=== PATIENT | male | born 1965 | race African-American/Black ===

== ENCOUNTER 2016-10-15 19:47 | Emergency (ER) | payer OTHER ==
[2016-10-15 19:54] VITALS: BP 149/76; PULSE 62; TEMP 99; BMI 26.2
--- NOTE | 2016-10-15 20:08 | PDOC ---
History of Present Illness - General Chief Complaint: Pain Stated Complaint: STOMACH PAIN Time Seen by Provider: 10/15/16 20:04 - History of Present Illness Initial Comments: 10/15/16 20:19 51 yo M with no significant pmh who presents with nausea. Pt. reports nausea and vomiting this AM x 3 following binge drinking episode of [place]. Emesis non biliary with absent blood in vomitus. Endorses mild dull, diffuse abdominal pain, that is improving. No alleviating or aggravating factors identified. Endorses decreased PO intake d/t GI upset. Denies fevers/chills, SOB , chest pain, blood in stool, diarrhea/constipation, lightheadedness. No h/o abdominal procedures. Denies illict drug use. Request work note. Past History - Past Medical History Allergies/Adverse Reactions: Allergies Allergy/AdvReac Type Severity Reaction Status Date / Time No Known Allergies Allergy Verified 10/15/16 19:54 Home Medications: Ambulatory Orders NK [No Known Home Medication] 10/15/16 - Immunization History Immunization Up to Date: Yes - Psycho/Social/Smoking Cessation Hx Anxiety: No Suicidal Ideation: No Smoking Status: No Smoking History: Never smoked Have you smoked in the past 12 months: No Number of Cigarettes Smoked Daily: 0 Information on smoking cessation initiated: No Hx Alcohol Use: Yes Drug/Substance Use Hx: No Substance Use Type: None Review of Systems - Review of Systems Comments:: 10/15/16 20:09 GENERAL/CONSTITUTIONAL: No fever or chills. No weakness. HEAD, EYES, EARS, NOSE AND THROAT: No change in vision. No ear pain or discharge. No sore throat.- CARDIOVASCULAR: No chest pain or shortness of breath RESPIRATORY: No cough, wheezing, or hemoptysis. GASTROINTESTINAL: + nausea,and vomiting and abdominal pain. No diarrhea or constipation. GENITOURINARY: No dysuria, frequency, or change in urination. MUSCULOSKELETAL: No joint or muscle swelling or pain. No neck or back pain. SKIN: No rash NEUROLOGIC: No headache, vertigo, loss of consciousness, or change in strength/ sensation. ENDOCRINE: No increased thirst. No abnormal weight change HEMATOLOGIC/LYMPHATIC: No anemia, easy bleeding, or history of blood clots. ALLERGIC/IMMUNOLOGIC: No hives or skin allergy. *Physical Exam - Vital Signs Last Vital Signs Temp Pulse Resp BP Pulse Ox 99.0 F 62 149/76 100 10/15/16 19:51 10/15/16 19:51 10/15/16 19:51 10/15/16 19:51 - Physical Exam Comments: 10/15/16 20:09 GENERAL: Awake, alert, and fully oriented, in no acute distress HEAD: No signs of trauma, normocephalic, atraumatic EYES: PERRLA, EOMI, sclera anicteric, conjunctiva clear ENT: Auricles normal inspection, hearing grossly normal, nares patent, oropharynx clear without exudates. Moist mucosa NECK: Normal ROM, supple, no lymphadenopathy, JVD, or masses LUNGS: No distress, speaks full sentences, clear to auscultation bilaterally HEART: Regular rate and rhythm, normal S1 and S2, no murmurs, rubs or gallops, peripheral pulses normal and equal bilaterally. ABDOMEN: Soft, nontender, normoactive bowel sounds. No guarding, no rebound. No masses EXTREMITIES : Normal inspection, Normal range of motion, no edema. No clubbing or cyanosis. SKIN: Warm, Dry, normal turgor, no rashes or lesions noted. ED Treatment Course - LABORATORY CBC & Chemistry Diagram: 10/15/16 20:45 10/15/16 20:45 Medical Decision Making - Medical Decision Making 10/15/16 20:24 51 yo M with no significant pmh who presents with nausea. Pt. reports non biliary nausea and vomiting this AM x 3 following recent alcohol intake. Endorses mild dull, diffuse abdominal pain, that is improving. No associated symptoms. Vitals unremarkable No h/o abdominal procedures. Denies illicit drug use. Request work note. S/s most likely d/t GI upset following binge drinking episode. 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 ED Course: NS 1 L Zofran CBC/CMP 10/15/16 21:13 CBC unremarkable CMP: Unremarkable *DC/Admit/Observation/Transfer Diagnosis at time of Disposition: Nausea and vomiting Qualifiers: Vomiting Intractability: non-intractable - Discharge Dispostion Disposition: HOME Condition at time of disposition: Improved Admit: No - Patient Instructions Additional Instructions: Please return to Ed if you experience blood in stool or vomit, worsening abdominal pain, or worsening symptoms - Post Discharge Activity Work/School Note: Back to Work
[2016-10-15] MEDS ORDERED: SODIUM CHLORIDE 1,000 ML IV STA (20:18)
[2016-10-15] MEDS ORDERED: ONDANSETRON 4 MG/2 ML VIAL IVPB ONE (20:18)
--- NOTE | 2016-10-15 20:22 | PDOC ---
Attending Attestation - Resident Resident Name: Danny Garcia - ED Attending Attestation I have performed the following: I have examined & evaluated the patient, The case was reviewed & discussed with the resident, I agree w/resident's findings & plan, Exceptions are as noted - HPI HPI: 10/15/16 22:12 51 yo male admits to drinking alcohol heavily the day before and presents abd discomfort - Physicial Exam PE: 10/15/16 22:13 Physical exam distress Well-nourished well-developed 51-year-old male in no acute distress. HEENT within normal limits Lungs clear to auscultation bilaterally Regular rate and rhythm S1, S2, no rubs and no gallops. Abdomen, no guarding and no rebound. Extremities no deformity Neurology alert and oriented 3, ambulatory - Medical Decision Making 10/15/16 22:15 -he received Zofran, IV fluids and felt much better, was discharged home
[2016-10-15] MEDS ORDERED: ONDANSETRON 4 MG/2 ML VIAL ONE (20:33)
[2016-10-15 20:53] LABS: BASOPHIL 0.6 % (0-2.0); EOSINOPHIL 0.4 % (0-4.5); MCH 28.7 pg (25.7-33.7); MCHC 32.9 g/dl (32.0-35.9); MEAN CELL VOLUME 87.2 fl (80-96); MEAN PLT VOLUME 7.7 fl (7.5-11.1); NEUTROPHILS 54.5 % (42.8-82.8); PLATELET COUNT 230 K/MM3 (134-434); RDW 14.5 % (11.9-15.9); WHITE BLOOD COUNT 9.6 K/mm3 (4.0-10.0)
[2016-10-15 21:23] LABS: ALBUMIN 3.9 g/dl (3.4-5.0); ALK PHOS 66 U/L (45-117); ANION GAP 8 (8-16); BILIRUBIN,TOTAL 0.8 mg/dL (0.2-1.0); CALCIUM 8.9 mg/dL (8.5-10.1); CO2 29 mmol/L (21-32); CREATININE 0.8 mg/dL (0.7-1.3); GLUCOSE,RANDOM 92 mg/dL (74-106); SGPT/ALT 41 U/L (12-78); TOT PROT 7.6 g/dl (6.4-8.2)
[2016-10-15 21:24] LABS: SGOT/AST 25 U/L (15-37)
== END 2016-10-15 22:42 | disposition home or self-care (01) ==
LOC: JER 19:47
PROC: 3E033GC Introduction of Other Therapeutic Substance into Peripheral Vein, Percutaneous Approach (ICD-10-PCS; principal; 2016-10-15)
DX: R11.2 Nausea with vomiting, unspecified (principal)
CPT/HCPCS: 36415; 80053; 83690; 85025; 99283-25

== ENCOUNTER 2017-06-10 23:01 | Emergency (ER) | payer OTHER ==
[2017-06-10 23:25] VITALS: BP 122/65; PULSE 86; TEMP 99.8; BMI 25.0
--- NOTE | 2017-06-11 00:56 | PDOC ---
History of Present Illness <Katya Orlando Leni - Last Filed: 06/11/17 00:55> - General History Source: Patient Exam Limitations: No Limitations - History of Present Illness Initial Comments: 06/11/17 01:04 The patient is a 52 year old male who denies any significant past medical history who presents to the ED complaining of chills, malaise, and generalized weakness that began this morning while at work. He also reports associated nausea. No chest pain or SOB. No abdominal pain, vomiting, or diarrhea. No urinary complaints. Denies sick contacts or recent travel. <Darleen Nobles - Last Filed: 06/11/17 01:03> <Rosamaria Parish - Last Filed: 06/11/17 06:27> - General Chief Complaint: Cold Symptoms Stated Complaint: WEAKNESS Time Seen by Provider: 06/11/17 00:55 Past History - Past Medical History COPD: No Other medical history: Pt denies - Immunization History Immunization Up to Date: Yes - Suicide/Smoking/Psychosocial Hx Smoking Status: No Smoking History: Never smoked Have you smoked in the past 12 months: No Number of Cigarettes Smoked Daily: 0 Information on smoking cessation initiated: No Hx Alcohol Use: No Drug/Substance Use Hx: No Substance Use Type: None <Augusto Orlandoleeroy Farrar - Last Filed: 06/11/17 00:55> <Darlene Nobles - Last Filed: 06/11/17 01:03> <Rosamaria Parish - Last Filed: 06/11/17 06:27> - Past Medical History Allergies/Adverse Reactions: Allergies Allergy/AdvReac Type Severity Reaction Status Date / Time No Known Allergies Allergy Verified 06/10/17 23:21 Home Medications: Ambulatory Orders NK [No Known Home Medication] 10/15/16 Review of Systems - Review of Systems Able to Perform ROS?: Yes Comments:: 06/11/17 01:05 GENERAL/CONSTITUTIONAL: +Chills +weakness +malaise HEAD, EYES, EARS, NOSE AND THROAT: No change in vision. No ear pain or discharge. No sore throat. CARDIOVASCULAR: No chest pain or shortness of breath. RESPIRATORY: No cough, wheezing, or hemoptysis. GASTROINTESTINAL: +Nausea. No abdominal pain, vomiting, diarrhea or constipation. GENITOURINARY: No dysuria, frequency, or change in urination. MUSCULOSKELETAL: No joint or muscle swelling or pain. No neck or back pain. SKIN: No rash NEUROLOGIC: No headache, vertigo, loss of consciousness, or change in strength/ sensation. ENDOCRINE: No increased thirst. No abnormal weight change. HEMATOLOGIC/LYMPHATIC: No anemia, easy bleeding, or history of blood clots. ALLERGIC/IMMUNOLOGIC: No hives or skin allergy. <Darlene Nobles - Last Filed: 06/11/17 01:03> *Physical Exam - Vital Signs Last Vital Signs Temp Pulse Resp BP Pulse Ox 99.8 F H 86 18 122/65 98 06/10/17 23:22 06/10/17 23:22 06/10/17 23:22 06/10/17 23:22 06/10/17 23:22 <Katya Orlando - Last Filed: 06/11/17 00:55> - Vital Signs Last Vital Signs Temp Pulse Resp BP Pulse Ox 99.8 F H 86 18 122/65 98 06/10/17 23:22 06/10/17 23:22 06/10/17 23:22 06/10/17 23:22 06/10/17 23:22 - Physical Exam Comments: 06/11/17 01:06 GENERAL: Awake, alert, and fully oriented, in no acute distress HEAD: No signs of trauma EYES: PERRLA, EOMI, sclera anicteric, conjunctiva clear ENT: Auricles normal inspection, hearing grossly normal, nares patent, oropharynx clear without exudates. Moist mucosa NECK: Normal ROM, supple, no lymphadenopathy, JVD, or masses LUNGS: Breath sounds equal, clear to auscultation bilaterally. No wheezes, and no crackles HEART: Regular rate and rhythm, normal S1 and S2, no murmurs, rubs or gallops ABDOMEN: Soft, nontender, normoactive bowel sounds. No guarding, no rebound. No masses EXTREMITIES: Normal range of motion, no edema. No clubbing or cyanosis. No cords, erythema, or tenderness NEUROLOGICAL: Cranial nerves II through XII grossly intact. Normal speech, normal gait SKIN: Warm, Dry, normal turgor, no rashes or lesions noted. <Darlene Nobles - Last Filed: 06/11/17 01:03> - Vital Signs Last Vital Signs Temp Pulse Resp BP Pulse Ox 99.8 F H 86 18 122/65 98 06/10/17 23:22 06/10/17 23:22 06/10/17 23:22 06/10/17 23:22 06/10/17 23:22 <Rosamaria Parish - Last Filed: 06/11/17 06:27> ED Treatment Course - LABORATORY CBC & Chemistry Diagram: 06/11/17 01:30 06/11/17 01:30 - ADDITIONAL ORDERS Additional order review: Laboratory Results 06/11/17 06/11/17 01:30 01:30 Sodium 142 Potassium 3.4 L Chloride 104 Carbon Dioxide 28 Anion Gap 10 BUN 19 H D Creatinine 0.9 Creat Clearance w eGFR > 60 Random Glucose 94 Calcium 9.0 Total Bilirubin 0.9 AST 19 D ALT 26 D Alkaline Phosphatase 75 Total Protein 7.5 Albumin 3.9 Lipase 142 06/11/17 01:30 RBC 4.27 MCV 86.6 MCHC 33.5 RDW 13.4 MPV 7.4 L Neutrophils % 75.9 D Lymphocytes % 16.9 D Monocytes % 6.0 Eosinophils % 0.8 D Basophils % 0.4 - Medications Given in the ED: ED Medications Discontinued Medications Generic Name Dose Route Start Last Admin Trade Name Freq PRN Reason Stop Dose Admin Acetaminophen 650 mg 06/11/17 01:04 06/11/17 01:37 Tylenol - PO 06/11/17 01:05 650 mg ONCE ONE Administration <Rosamaria Parish - Last Filed: 06/11/17 06:27> Medical Decision Making - Medical Decision Making 06/11/17 06:27 I received pt on signout. Labs and CXR normal. Pt discharged home. COmplaint o f"malaise" Pt given days off from work. <Rosamaria Parish - Last Filed: 06/11/17 06:27> *DC/Admit/Observation/Transfer <Katya Orlando - Last Filed: 06/11/17 00:55> - Attestations Scribe Attestion: 06/11/17 01:06 Documentation prepared by Darlene Nobles, acting as medical record coder for Katya Orlando MD. <Darlene Nobles - Last Filed: 06/11/17 01:03> - Discharge Dispostion Admit: No <Rosamaria Parish - Last Filed: 06/11/17 06:27> Diagnosis at time of Disposition: Malaise - Discharge Dispostion Disposition: HOME Condition at time of disposition: Stable - Patient Instructions Printed Discharge Instructions: How to Avoid a Cold or Flu - Post Discharge Activity Forms/Work/School Notes: Back to Work
[2017-06-11] MEDS ORDERED: ACETAMINOPHEN 325 MG TABLET (FP) PO ONE (01:04)
[2017-06-11] MEDS ORDERED: ACETAMINOPHEN 325 MG TABLET (FP) ONE (01:18)
[2017-06-11 01:53] LABS: BASO % 0.4 % (0-2.0); EOS % 0.8 % (0-4.5); HEMATOCRIT 36.9 % (35.4-49); HEMOGLOBIN 12.4 GM/dL (11.7-16.9); LYMPH % 16.9 % (8-40); MCHC 33.5 g/dl (32.0-35.9); MEAN CELL VOLUME 86.6 fl (80-96); MEAN PLT VOLUME 7.4 fl (7.5-11.1); NEUT % 75.9 % (42.8-82.8); PLATELET COUNT 204 K/MM3 (134-434); RBC 4.27 M/mm3 (4.00-5.60); RDW 13.4 % (11.9-15.9); WHITE BLOOD COUNT 7.4 K/mm3 (4.0-10.0)
[2017-06-11 02:18] LABS: ALBUMIN 3.9 g/dl (3.4-5.0); ANION GAP 10 (8-16); BILIRUBIN,TOTAL 0.9 mg/dL (0.2-1.0); BLOOD UREA NITROGEN 19 mg/dL (7-18); CHLORIDE 104 mmol/L (98-107); CO2 28 mmol/L (21-32); CREATININE 0.9 mg/dL (0.7-1.3); GLUCOSE,RANDOM 94 mg/dL (74-106); POTASSIUM 3.4 mmol/L (3.5-5.1); SGOT/AST 19 U/L (15-37); SGPT/ALT 26 U/L (12-78); SODIUM 142 mmol/L (136-145); TOT PROT 7.5 g/dl (6.4-8.2)
[2017-06-11 02:19] LABS: ALK PHOS 75 U/L (45-117)
== END 2017-06-11 02:36 | disposition home or self-care (01) ==
LOC: JER 23:01
DX: R53.81 Other malaise (principal)
CPT/HCPCS: 36415; 71046-TC-FY; 80053; 83690; 85025; 87804; 99281-25; 99282-25

== ENCOUNTER 2017-08-12 19:15 | Emergency (ER) | payer OTHER ==
[2017-08-12 19:30] VITALS: BP 127/107; PULSE 88; TEMP 102.8; BMI 22.7
[2017-08-12] MEDS ORDERED: SODIUM CHLORIDE 0.9% 1000 ML INFUS.BAG IV STA (20:03)
--- NOTE | 2017-08-12 20:04 | PDOC ---
History of Present Illness - General Chief Complaint: SIRS, Suspected/Possible Stated Complaint: FATIGUE Time Seen by Provider: 08/12/17 19:50 History Source: Patient, Old Records Exam Limitations: No Limitations - History of Present Illness Initial Comments: 08/12/17 20:08 52-year-old male who denies significant past medical history presents emergency departments with feelings of chills, generalized weakness, nausea which started today at approximately 3:00. Patient states she did have similar episode 1 day prior but symptoms resolved spontaneously. Denies any chest pain, shortness of breath, abdominal pain, vomiting or diarrhea. No urinary complaints. Patient has not had any sick contacts or recent travel. Past History - Past Medical History Allergies/Adverse Reactions: Allergies Allergy/AdvReac Type Severity Reaction Status Date / Time No Known Allergies Allergy Verified 06/10/17 23:21 Home Medications: Ambulatory Orders NK [No Known Home Medication] 10/15/16 COPD: No DVT: No - Immunization History Immunization Up to Date: Yes - Suicide/Smoking/Psychosocial Hx Smoking Status: No Smoking History: Never smoked Have you smoked in the past 12 months: No Number of Cigarettes Smoked Daily: 0 Information on smoking cessation initiated: No Hx Alcohol Use: Yes (socially) Drug/Substance Use Hx: No Substance Use Type: None Review of Systems - Review of Systems Able to Perform ROS?: Yes Is the patient limited Polish proficient: No Constitutional: Yes: See HPI HEENTM: Yes: See HPI Respiratory: Yes: See HPI Cardiac (ROS): No: Symptoms Reported ABD/GI: Yes: See HPI : No: Symptoms Reported Musculoskeletal: No: Symptoms Reported Integumentary: No: Symptoms Reported Neurological: Yes: See HPI Endocrine: No: Symptoms Reported Hematologic/Lymphatic: No: Symptoms Reported *Physical Exam - Vital Signs Last Vital Signs Temp Pulse Resp BP Pulse Ox 102.8 F H 88 20 127/107 100 08/12/17 19:21 08/12/17 19:21 08/12/17 19:21 08/12/17 19:21 08/12/17 19:21 - Physical Exam General Appearance: Yes: Appropriately Dressed. No: Apparent Distress HEENT: positive: EOMI, SERGIO, Normal ENT Inspection, Pharyngeal Erythema. negative: Muffled/Hoarse voice, Tonsillar Exudate, Tonsillar Erythema Neck: positive: Trachea midline, Supple Respiratory/Chest: positive: Lungs Clear, Normal Breath Sounds. negative: Respiratory Distress, Accessory Muscle Use Cardiovascular: positive: Regular Rhythm, Regular Rate. negative: Murmur Gastrointestinal/Abdominal: positive: Normal Bowel Sounds, Soft. negative: Tender Musculoskeletal: positive: Normal Inspection. negative: CVA Tenderness Extremity: positive: Normal Inspection, Normal Range of Motion Integumentary: positive: Normal Color, Dry, Warm Neurologic: positive: log hauler II-XII NML intact, Fully Oriented, Alert, Normal Mood/ Affect, Normal Response, Motor Strength 5/5, Finger to Nose ED Treatment Course - LABORATORY CBC & Chemistry Diagram: 08/12/17 20:37 08/12/17 20:37 - RADIOLOGY Radiology Studies Ordered: Category Date Time Status CHEST X-RAY PORTABLE* [RAD] Stat Radiology 08/12/17 20:03 Ordered Medical Decision Making - Medical Decision Making 08/12/17 20:08 A/P: 52-year-old male with fevers, headache, malaise and nausea starting today at 3: 00 Oropharynx with erythema. No exudates. Lungs are to auscultation bilaterally RRR. S1 and S2 present. No murmurs rub or gallop noted Abdomen soft nontender nondistended Temperature of 102.3 upon arrival. Patient's heart rate is within normal limits and currently does not meet SIRS criteria- pending CBC. I will initiate a sepsis workup with no clear source at this time I will collect urine cultures, blood cultures and chest x-ray to identify source. Patient does have a headache with normal neurological exam which leads me to believe this is likely a viral infection. 08/12/17 23:08 Chest x-rays read by me: No infiltrate or consolidations are noted. Cardiac silhouette is slightly enlarged likely due to patient positioning. Study is grossly unchanged from previous exam on 06/11/17. EKG reveals sinus rhythm rate of 99. Normal intervals. Urinalysis benign. Likely viral infection. I will discharge the patient home to follow-up with his primary doctor. Repeat temperature is 98.9 orally. I discussed the physical exam findings, ancillary test results and final diagnoses with the patient. I answered all of the patient's questions. The patient was satisfied with the care received and felt comfortable with the discharge plan and treatment plan. The patient will call their primary care physician within 24 hours to arrange follow-up and will return to the Emergency Department with any new, persistent or worsening symptoms. *DC/Admit/Observation/Transfer Diagnosis at time of Disposition: Viral infection - Discharge Dispostion Disposition: HOME Condition at time of disposition: Fair Decision to Admit order: No - Referrals - Patient Instructions Printed Discharge Instructions: DI for Fever (Symptom) -- Adult Additional Instructions: Rest, drink lots of fluids: Teas, water, soups, Pedialyte Saltwater gargles Steamy showers/seem to face break up mucus Avoid contact with others until fevers and cough resolved Lots of handwashing and good hygiene Continue cyhu-pym-zjmabor medications for symptomatic relief Tylenol or Motrin for fever and pain Followup with private physician in one to 2 days as needed Return to emergency department for worsened symptoms, fevers, dehydration - Post Discharge Activity Forms/Work/School Notes: Back to Work
[2017-08-12] MEDS ORDERED: ACETAMINOPHEN 500 MG TABLET (FP) PO ONE (20:10)
[2017-08-12 20:50] LABS: BASO % 0.3 % (0-2.0); EOS % 0.1 % (0-4.5); HEMATOCRIT 37.4 % (35.4-49); HEMOGLOBIN 12.2 GM/dL (11.7-16.9); LYMPH % 8.6 % (8-40); MCH 28.4 pg (25.7-33.7); MCHC 32.7 g/dl (32.0-35.9); MEAN CELL VOLUME 87.1 fl (80-96); MONO % 2.3 % (3.8-10.2); NEUT % 88.7 % (42.8-82.8); PLATELET COUNT 190 K/MM3 (134-434); RDW 13.7 % (11.9-15.9); WHITE BLOOD COUNT 6.1 K/mm3 (4.0-10.0)
[2017-08-12] MEDS ORDERED: ACETAMINOPHEN 325 MG TABLET (FP) ONE (20:55)
[2017-08-12 20:56] LABS: VENOUS PC02 44.8 mmHg (38-52); VENOUS PH 7.42 (7.32-7.42); VENOUS PO2 25.9 mmHg (28-48)
[2017-08-12 21:04] LABS: INR 1.11 (0.82-1.09); PROTHROMBIN TIME (PATIENT) 12.5 SEC (9.7-13.0)
[2017-08-12 21:07] LABS: ACTIVATED PTT 26.6 SECONDS (25.2-36.5)
[2017-08-12 21:12] LABS: ALBUMIN 3.7 g/dl (3.4-5.0); ALK PHOS 67 U/L (45-117); ANION GAP 7 (8-16); BILIRUBIN,TOTAL 1.1 mg/dL (0.2-1.0); BLOOD UREA NITROGEN 19 mg/dL (7-18); CALCIUM 8.4 mg/dL (8.5-10.1); CHLORIDE 105 mmol/L (98-107); CO2 29 mmol/L (21-32); CREATININE 1.1 mg/dL (0.7-1.3); GLUCOSE,RANDOM 89 mg/dL (74-106); POTASSIUM 3.5 mmol/L (3.5-5.1); SGOT/AST 22 U/L (15-37); SGPT/ALT 28 U/L (12-78); SODIUM 141 mmol/L (136-145); TOT PROT 7.2 g/dl (6.4-8.2)
[2017-08-12 22:54] LABS: URINE APPEARANCE CLEAR; URINE BILIRUBIN NEGATIVE (<2.0 mg/dL); URINE COLOR YELLOW; URINE GLUCOSE (UA) NEGATIVE (NEGATIVE); URINE KETONE NEGATIVE (NEGATIVE); URINE LEUK ESTERASE NEGATIVE (NEGATIVE); URINE NITRITE NEGATIVE (NEGATIVE); URINE PROTEIN NEGATIVE (NEGATIVE)
[2017-08-12] MEDS ORDERED: HYDROmorphone HCL 2 MG TABLET ONE (23:51)
--- NOTE | 2017-08-13 08:57 | EKG ---
Test Reason : Blood Pressure : / mmHG Vent. Rate : 099 BPM Atrial Rate : 099 BPM P-R Int : 166 ms QRS Dur : 080 ms QT Int : 332 ms P-R-T Axes : 071 031 021 degrees QTc Int : 426 ms NORMAL SINUS RHYTHM NORMAL ECG NO PREVIOUS ECGS AVAILABLE Confirmed by ARIEL FRANCIS MD ([id number]) on 08/13/2017 8:57:39 AM Referred By: Confirmed By:ARIEL FRANCIS MD
== END 2017-08-13 00:19 | disposition home or self-care (01) ==
LOC: JER 19:15
DX: B34.9 Viral infection, unspecified (principal)
CPT/HCPCS: 36415; 71045-TC-FY; 80053; 81003; 82803; 83605; 84484; 85025; 85610; 85730; 87040; 87086; 93005; 93010; 99283-25; J7030

== ENCOUNTER 2018-03-20 03:32 | Emergency (ER) | payer OTHER ==
[2018-03-20 03:53] VITALS: BMI 25.9
--- NOTE | 2018-03-20 04:04 | PDOC ---
*Physical Exam - Vital Signs Last Vital Signs Temp Pulse Resp BP Pulse Ox 98.1 F 78 20 110/75 98 03/20/18 03:46 03/20/18 03:46 03/20/18 03:46 03/20/18 03:46 03/20/18 03:46 Medical Decision Making - Medical Decision Making 03/20/18 04:04 Patient seen by the advanced practice provider under my direct supervision. Ancillary testing reviewed as necessary. I agree with plan as outlined by the advanced practice provider. *DC/Admit/Observation/Transfer Diagnosis at time of Disposition: Mild nasal congestion - Discharge Dispostion Disposition: HOME Condition at time of disposition: Stable - Prescriptions Prescriptions: Ipratropium [place] 30 ml NS TID #1 bottle - Referrals - Patient Instructions Additional Instructions: Take Sudafed or Sudafed PE as needed for nasal congestion. Follow mine promotor' s instructions for appropriate dosage. Use Atrovent nasal spray 3 times a day in each nostril to help with nasal congestion. Steamy showers may help alleviate some nasal congestion. Keep well-hydrated. Return to emergency department for any concerns. - Post Discharge Activity
[2018-03-20] MEDS ORDERED: PSEUDOEPHEDRINE HCL 60 MG TABLET PO ONE (04:22)
--- NOTE | 2018-03-20 04:26 | PDOC ---
History of Present Illness - General Chief Complaint: Shortness of Breath Stated Complaint: DIFF BREATHING Time Seen by Provider: 03/20/18 04:03 History Source: Patient Exam Limitations: No Limitations - History of Present Illness Initial Comments: 03/20/18 04:20 HISTORY OF PRESENT ILLNESS: 52-year-old male denies medical history of presents emergency department for evaluation of nasal congestion today. Patient was seen and evaluated by his primary doctor and was given a prescription for azithromycin. Patient has taken one dose of the azithromycin but was concerned when he had continued nasal congestion now. Patient has not tried taking any [id number] relief for the nasal congestion. He denies fevers, chills, headaches, sinus pressure, sore throats, shortness of breath, cough, chest pain. No recent travel or sick contacts. PAST MEDICAL HISTORY: Denies past medical history SURGICAL HISTORY: Denies ALLERGIES: No known drug allergies REVIEW OF SYSTEMS General/Constitutional: Denies fever or chills. Denies weakness, weight change. HEENT: Denies change in vision. Denies ear pain or discharge. Denies sore throat. reports nasal congestion Cardiovascular: Denies chest pain or shortness of breath. Respiratory: Denies cough, wheezing, or hemoptysis. Gastrointestinal: Denies nausea, vomiting, diarrhea or constipation. Denies rectal bleeding. Genitourinary: Denies dysuria, frequency, or change in urination. Musculoskeletal: Denies joint or muscle swelling or pain. Denies neck or back pain. Skin and breasts: Denies rash or easy bruising. Neurologic: Denies headache, vertigo, loss of consciousness, or loss of sensation. Psychiatric: Denies depression or anxiety. Endocrine: Denies increased thirst. Denies abnormal weight change. Hematologic/Lymphatic: Denies anemia, easy bleeding, or history of blood clots. Allergic/Immunologic: Denies hives or skin allergy. Denies latex allergy. PHYSICAL EXAM General Appearance: Well-appearing, appropriately dressed. No apparent distress , no intoxication. HEENT: EOMI, PERRLA, normal ENT inspection, normal voice, TMs normal, pharynx normal. No conjunctival pallor. No photophobia, scleral icterus. +nasal congestion present. Neck: Supple. Trachea midline. No tenderness, rigidity, carotid bruit, stridor , lymphadenopathy, or thyromegaly. Respiratory/Chest: Lungs CTAB. No shortness of breath, chest tenderness, respiratory distress, accessory muscle use. No crackles, rales, rhonchi, stridor , wheezing, dullness Cardiovascular: RRR. S1, S2. No JVD, murmur, bradycardia, tachycardia. Gastrointestinal/Abdominal: Normal bowel sounds. Abdomen soft, non-distended. No tenderness or rebound tenderness. No organomegaly, pulsatile mass, guarding, hernia, hepatomegaly, splenomegaly. Musculoskeletal/Extremities: Normal inspection. FROM of all extremities, normal capillary refill. Pelvis Stable. No CVA tenderness. No tenderness to extremities, pedal edema, swelling, erythema or deformity. Integumentary: Appropriate color, dry, warm. No cyanosis, erythema, jaundice or rash Neurologic: hoisting engineer II-XII intact. Fully oriented, alert. Appropriate mood/affect. Motor strength 5/5. No appreciable EOM palsy, facial droop or sensory deficit. 03/22/18 14:08 Past History - Past Medical History Allergies/Adverse Reactions: Allergies Allergy/AdvReac Type Severity Reaction Status Date / Time No Known Allergies Allergy Verified 06/10/17 23:21 Home Medications: Ambulatory Orders Ipratropium [place] 30 ml NS TID #1 bottle 03/20/18 COPD: No DVT: No - Immunization History Immunization Up to Date: Yes - Suicide/Smoking/Psychosocial Hx Smoking Status: No Smoking History: Never smoked Have you smoked in the past 12 months: No Number of Cigarettes Smoked Daily: 0 Information on smoking cessation initiated: No Hx Alcohol Use: Yes (Social) Drug/Substance Use Hx: No Substance Use Type: None *Physical Exam - Vital Signs Last Vital Signs Temp Pulse Resp BP Pulse Ox 98.1 F 78 20 110/75 98 03/20/18 03:46 03/20/18 03:46 03/20/18 03:46 03/20/18 03:46 03/20/18 03:46 Moderate Sedation - Procedure Monitoring Vital Signs: Procedure Monitoring Vital Signs Temperature 98.1 F 03/20/18 03:46 Pulse Rate 78 03/20/18 03:46 Respiratory Rate 20 03/20/18 03:46 Blood Pressure 110/75 03/20/18 03:46 O2 Sat by Pulse Oximetry (%) 98 03/20/18 03:46 Medical Decision Making - Medical Decision Making 03/20/18 04:23 A/P: 52-year-old male with nasal congestion Sudafed 60 mg now Discharge home with prescription for Atrovent nasal spray *DC/Admit/Observation/Transfer Diagnosis at time of Disposition: Mild nasal congestion - Discharge Dispostion Disposition: HOME Condition at time of disposition: Stable Decision to Admit order: No - Prescriptions Prescriptions: Ipratropium [place] 30 ml NS TID #1 bottle - Referrals - Patient Instructions Additional Instructions: Take Sudafed or Sudafed PE as needed for nasal congestion. Follow insurance agents supervisor' s instructions for appropriate dosage. Use Atrovent nasal spray 3 times a day in each nostril to help with nasal congestion. Steamy showers may help alleviate some nasal congestion. Keep well-hydrated. Return to emergency department for any concerns. - Post Discharge Activity
[2018-03-20] MEDS ORDERED: PSEUDOEPHEDRINE HCL 60 MG TABLET ONE (04:29)
[2018-03-20 04:39] VITALS: BP 113/74; PULSE 75; TEMP 98.6
== END 2018-03-20 04:41 | disposition home or self-care (01) ==
LOC: JER 03:32
DX: R09.81 Nasal congestion (principal)
CPT/HCPCS: 99281-25

== ENCOUNTER 2019-10-22 13:26 | Emergency (ER) | payer OTHER ==
--- NOTE | 2019-10-22 13:54 | PDOC ---
Rapid Medical Evaluation Time Seen by Provider: 10/22/19 13:34 Medical Evaluation: Allergies Allergy/AdvReac Type Severity Reaction Status Date / Time No Known Allergies Allergy Verified 06/10/17 23:21 10/22/19 13:41 CC: lower abd pain he describes as a sharp pressure radiaing to back, no other complaints Exam: lower abd tenderness with no abd tenderness Plan: labs, urine,
[2019-10-22 13:58] VITALS: BP 135/75; PULSE 72; TEMP 98.5; BMI 26.2
[2019-10-22] MEDS ORDERED: morphine CARPU-JECT 2 MG/1 ML DISP.SYRIN IVPUSH ONE (14:19)
[2019-10-22] MEDS ORDERED: SODIUM CHLORIDE 0.9% 500 ML INFUS.BAG IV ONE (14:20)
[2019-10-22] MEDS ORDERED: MORPHINE SULFATE 2 MG/ML VIAL ONE (14:25)
[2019-10-22 14:27] LABS: BASO % 0.6 % (0-2.0); EOS % 2.8 % (0-4.5); HEMATOCRIT 39.3 % (35.4-49); HEMOGLOBIN 12.8 GM/dL (11.7-16.9); LYMPH % 45.3 % (8-40); MCH 28.8 pg (25.7-33.7); MCHC 32.6 g/dl (32.0-35.9); MEAN CELL VOLUME 88.4 fl (80-96); MEAN PLT VOLUME 7.3 fl (7.5-11.1); MONO % 9.8 % (3.8-10.2); NEUT % 41.5 % (42.8-82.8); PLATELET COUNT 218 K/MM3 (134-434); RBC 4.44 M/mm3 (4.00-5.60); WHITE BLOOD COUNT 6.3 K/mm3 (4.0-10.0)
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
[2019-10-22 15:00] LABS: ALBUMIN 3.6 g/dl (3.4-5.0); BILIRUBIN,TOTAL 0.6 mg/dL (0.2-1); BLOOD UREA NITROGEN 15.1 mg/dL (7-18); CALCIUM 8.9 mg/dL (8.5-10.1); CREATININE 0.9 mg/dL (0.55-1.3); MAGNESIUM 2.1 mg/dL (1.8-2.4); POTASSIUM 4.6 mmol/L (3.5-5.1); TOT PROT 7.4 g/dl (6.4-8.2)
[2019-10-22] MEDS ORDERED: KETOROLAC TROMETHAMINE 30 MG/1 ML VIAL IVPUSH ONE (15:06)
[2019-10-22 15:20] LABS: URINE APPEARANCE CLEAR; URINE BILIRUBIN NEGATIVE (NEGATIVE); URINE COLOR YELLOW; URINE GLUCOSE (UA) NEGATIVE (NEGATIVE); URINE KETONE NEGATIVE (NEGATIVE); URINE LEUK ESTERASE NEGATIVE (NEGATIVE); URINE NITRITE NEGATIVE (NEGATIVE); URINE PROTEIN NEGATIVE (NEGATIVE)
[2019-10-22] MEDS ORDERED: KETOROLAC TROMETHAMINE 30 MG/1 ML VIAL ONE (15:44)
--- NOTE | 2019-10-22 16:59 | PDOC ---
*Physical Exam - Vital Signs Last Vital Signs Temp Pulse Resp BP Pulse Ox 98.5 F 72 10 135/75 100 10/22/19 13:30 10/22/19 13:30 10/22/19 13:30 10/22/19 13:30 10/22/19 13:30 - Physical Exam General Appearance: Yes: Nourished, Appropriately Dressed. No: Apparent Distress Musculoskeletal: positive: Muscle Spasm (L paraspinous muscles) Integumentary: positive: Normal Color, Dry, Diaphoresis Neurologic: positive: Fully Oriented, Alert, Normal Mood/Affect, Normal Response ED Treatment Course - LABORATORY CBC & Chemistry Diagram: 10/22/19 14:10 10/22/19 14:10 - ADDITIONAL ORDERS Additional order review: Laboratory Results 10/22/19 10/22/19 14:10 14:00 Sodium 140 Potassium 4.6 Chloride 105 Carbon Dioxide 32 Anion Gap 3 L BUN 15.1 Creatinine 0.9 Est GFR (CKD-EPI)AfAm 111.83 Est GFR (CKD-EPI)NonAf 96.49 Random Glucose 96 Calcium 8.9 Magnesium 2.1 Total Bilirubin 0.6 AST 57 H ALT 42 Alkaline Phosphatase 63 Total Protein 7.4 Albumin 3.6 Lipase 108 Urine Color Yellow Urine Appearance Clear Urine pH 6.0 Ur Specific [place] 1.024 Urine Protein Negative Urine Glucose (UA) Negative Urine Ketones Negative Urine Blood Negative Urine Nitrite Negative Urine Bilirubin Negative Urine Urobilinogen 2.0 Ur Leukocyte Esterase Negative 10/22/19 14:10 RBC 4.44 MCV 88.4 MCHC 32.6 RDW 14.0 MPV 7.3 L Neutrophils % 41.5 L D Lymphocytes % 45.3 H D Monocytes % 9.8 D Eosinophils % 2.8 D Basophils % 0.6 - Medications Given in the ED: ED Medications Discontinued Medications Generic Name Dose Route Start Last Admin Trade Name Freq PRN Reason Stop Dose Admin Ketorolac Tromethamine 30 mg 10/22/19 15:06 10/22/19 15:45 Toradol Injection - IVPUSH 10/22/19 15:07 30 mg ONCE ONE Administration Morphine Sulfate 2 mg 10/22/19 14:19 10/22/19 14:30 Morphine Injection - IVPUSH 10/22/19 14:20 2 mg ONCE ONE Administration Sodium Chloride 1,000 ml 10/22/19 14:20 10/22/19 14:30 Normal Saline - IV 10/22/19 14:21 1,000 ml ONCE ONE Administration Medical Decision Making - Medical Decision Making 10/22/19 16:49 Sign out received from ANGEL Rosales pt pending labs and x-ray Labs unremarkable, xray shows straightening of the Lumbar spine consistent with spasm Will treat with flexaril, and ibuprofen DC home with PCP follow up I discussed the physical exam findings, ancillary test results and final diagnoses with the patient. I answered all of the patient's questions. The patient was satisfied with the care received and felt comfortable with the discharge plan and treatment plan. The Patient agrees to follow up with the primary care physician/specialist within 24-72 hours. Return precautions were given. Discharge - Discharge Information Problems reviewed: Yes Clinical Impression/Diagnosis: Low back pain Qualifiers: Chronicity: chronic Back pain laterality: bilateral Sciatica presence: without sciatica Qualified Code(s): M54.5 - Low back pain Condition: Stable Disposition: HOME - Additional Discharge Information Prescriptions: Cyclobenzaprine HCl [Flexeril -] 10 mg PO HS #10 tablet Ibuprofen 600 mg PO Q6H #30 tablet - Follow up/Referral - Patient Discharge Instructions Patient Printed Discharge Instructions: DI for Low Back Pain Additional Instructions: You have low back pain due to a muscle spasm. Please take ibuprofen 600 mg 4 times a day not to exceed 3000 mg a day. You were also prescribed Flexeril. Please take this medication every 8 hours for the first day. Then take the medication before you go to bed. Do not drive after taking this medication as it may make you sleepy. You may use warm compresses on your back to help with her symptoms. Please follow-up with your primary care doctor. If your symptoms do not resolve in 3-5 days, follow-up with orthopedics. A referral has been provided for you. Return to the emergency department if you have worsening back pain, bladder or bowel incontinence, numbness and tingling in her legs, changes in the way you walk, or any new or worsening symptoms. - Post Discharge Activity Work/Back to School Note: Back to Work
--- OUTSIDE RECORDS SUMMARY | 2019-10-22 18:36 | XMS ---
:1965 Author Organization [facility] Support Name Relationship Address Phone [facility] Unavailable [address] [place] [address] FRANCISCA MARTINEZ FRIEND [address] [phone] [place] [address] Re-disclosure Warning The records that you are about to access may contain information from federally- assisted alcohol or drug abuse programs. If such information is present, then the following federally mandated warning applies: This information has been disclosed to you from records protected by federal confidentiality rules (42 CFR part 2). The federal rules prohibit you from making any further disclosure of this information unless further disclosure is expressly permitted by the written consent of the person to whom it pertains or as otherwise permitted by 42 CFR part 2. A general authorization for the release of medical or other information is NOT sufficient for this purpose. The Federal rules restrict any use of the information to criminally investigate or prosecute any alcohol or drug abuse patient.The records that you are about to access may contain highly sensitive health information, the redisclosure of which is protected by Article 27-F of the [facility] Public Health law. If you continue you may haveaccess to information: Regarding HIV / AIDS; Provided by facilities licensed or operated by the [facility] Office of Mental Health; or Provided by the [facility] Office for People With Developmental Disabilities. If such information is present, then the following [facility] mandated warning applies: This information has been disclosed to you from confidential records which are protected by state law. State law prohibits you from making any further disclosure of this information without the specific written consent of the person to whom it pertains, or as otherwise permitted by law. Any unauthorized further disclosure in violation of state law may result in a fine or skilled nursing sentence or both. A general authorization for the release of medical or other information is NOT sufficient authorization for further disclosure. Insurance Providers Payer name Policy type Policy ID Covered Covered constitution party's Policy P kirsten / Coverage constitution party ID relationship to Oneill Inf ormation type oneill [facility] [id number] [facility]
== END 2019-10-22 17:17 | disposition home or self-care (01) ==
LOC: JER 13:26
PROC: 3E033NZ Introduction of Analgesics, Hypnotics, Sedatives into Peripheral Vein, Percutaneous Approach (ICD-10-PCS; principal; 2019-10-22)
PROC: 3E033GC Introduction of Other Therapeutic Substance into Peripheral Vein, Percutaneous Approach (ICD-10-PCS; 2019-10-22)
DX: M54.5 Low back pain (principal); G89.29 Other chronic pain
CPT/HCPCS: 36415; 72100-TC-FY; 80053; 81003; 83690; 83735; 85025; 87086; 99285-25

== ENCOUNTER 2020-06-15 16:40 | Emergency (ER) | payer OTHER ==
[2020-06-15 16:54] VITALS: BMI 27.3
[2020-06-15] MEDS ORDERED: SODIUM CHLORIDE 0.9% 500 ML INFUS.BAG IV ONE (18:18)
[2020-06-15 18:50] LABS: BASO % 0.5 % (0-2.0); EOS % 3.1 % (0-4.5); HEMATOCRIT 37.5 % (35.4-49); HEMOGLOBIN 12.2 GM/dL (11.7-16.9); MCH 28.7 pg (25.7-33.7); MCHC 32.4 g/dl (32.0-35.9); MEAN CELL VOLUME 88.6 fl (80-96); MEAN PLT VOLUME 7.3 fl (7.5-11.1); MONO % 9.2 % (3.8-10.2); NEUT % 46.2 % (42.8-82.8); PLATELET COUNT 229 K/MM3 (134-434); RBC 4.23 M/mm3 (4.00-5.60); WHITE BLOOD COUNT 5.4 K/mm3 (4.0-10.0)
[2020-06-15 19:13] LABS: ALBUMIN 3.6 g/dl (3.4-5.0); BLOOD UREA NITROGEN 17.5 mg/dL (7-18); CALCIUM 8.5 mg/dL (8.5-10.1)
[2020-06-15 19:16] LABS: CREATININE 0.9 mg/dL (0.55-1.3)
[2020-06-15 19:18] LABS: BILIRUBIN,TOTAL 0.6 mg/dL (0.2-1); TOT PROT 6.9 g/dl (6.4-8.2)
[2020-06-15] MEDS ORDERED: MIDAZOLAM HCL 2 MG/2 ML SINGLE DOSE VIAL IVPUSH PRN (20:39)
[2020-06-15] MEDS ORDERED: MIDAZOLAM HCL 2 MG/2 ML SINGLE DOSE VIAL ONE (20:40)
[2020-06-15 23:09] VITALS: BP 121/74; PULSE 67; TEMP 98.5
== END 2020-06-15 23:11 | disposition home or self-care (01) ==
LOC: JER 16:40
PROC: 3E033NZ Introduction of Analgesics, Hypnotics, Sedatives into Peripheral Vein, Percutaneous Approach (ICD-10-PCS; principal; 2020-06-15)
DX: K62.5 Hemorrhage of anus and rectum (principal); R10.84 Generalized abdominal pain; K64.9 Unspecified hemorrhoids
CPT/HCPCS: 36415; 74177-TC; 80053; 85025; 99285-25; Q9967

== ENCOUNTER 2022-05-15 00:19 | Emergency (ER) | payer OTHER ==
[2022-05-15 00:24] VITALS: BP 143/75; PULSE 63; TEMP 98.7; BMI 26.6
[2022-05-15 00:28] VITALS: RESP 18
[2022-05-15] MEDS ORDERED: LIDOCAINE HCL 2% JELLY 10 ML CARTRIDGE PR ONE (00:38)
[2022-05-15] MEDS ORDERED: LIDOCAINE HCL 2% JELLY 10 ML CARTRIDGE ONE (00:44)
[2022-05-15 02:25] LABS: BASO % 0.5 % (0-2.0); EOS % 4.4 % (0-4.5); HEMATOCRIT 33.2 % (35.4-49); LYMPH % 37.3 % (8-40); MCHC 33.3 g/dl (32.0-35.9); MEAN CELL VOLUME 87.2 fl (80-96); MONO % 10.9 % (3.8-10.2); NEUT % 46.9 % (42.8-82.8); PLATELET COUNT 204 10^3/uL (134-434); RDW 14.1 % (11.9-15.9); WHITE BLOOD COUNT 7.1 K/mm3 (4.0-10.0)
[2022-05-15 02:34] LABS: INR 0.98 (0.83-1.09); PROTHROMBIN TIME (PATIENT) 11.4 SEC (9.7-13.0)
[2022-05-15 02:36] LABS: ACTIVATED PTT 33.4 SECONDS (25.2-36.5)
[2022-05-15 02:45] LABS: CALCIUM 8.8 mg/dL (8.5-10.1)
[2022-05-15 02:46] LABS: ALBUMIN 3.4 g/dl (3.4-5.0); BLOOD UREA NITROGEN 19.7 mg/dL (7-18)
[2022-05-15 02:49] LABS: CREATININE 0.9 mg/dL (0.55-1.3)
[2022-05-15 02:50] LABS: TOT PROT 6.8 g/dl (6.4-8.2)
[2022-05-15 02:51] LABS: BILIRUBIN,TOTAL 0.6 mg/dL (0.2-1)
== END 2022-05-15 03:12 | disposition home or self-care (01) ==
LOC: JER 00:19
DX: K64.4 Residual hemorrhoidal skin tags (principal)
CPT/HCPCS: 36415; 80053; 85025; 85610; 85730; 86850; 86900; 86901; 99283-25

== ENCOUNTER 2022-05-27 04:52 | Emergency (ER) | payer OTHER ==
[2022-05-27 05:02] VITALS: BMI 26.6
[2022-05-27] MEDS ORDERED: LIDOCAINE HCL 2% JELLY 10 ML CARTRIDGE ONE (05:42)
[2022-05-27] MEDS ORDERED: LIDOCAINE 5% TOPICAL PATCH ONE (05:42)
[2022-05-27] MEDS ORDERED: ACETAMINOPHEN INJECTION 100 ML IVPB ONE (05:52)
[2022-05-27] MEDS ORDERED: ACETAMINOPHEN 1000 MG/100 ML BAG IVPB ONE (05:53)
[2022-05-27] MEDS ORDERED: LIDOCAINE HCL 2% JELLY 10 ML CARTRIDGE PR ONE (05:53)
[2022-05-27 06:39] LABS: BASO % 0.1 % (0-2.0); EOS % 0.7 % (0-4.5); HEMATOCRIT 33.8 % (35.4-49); HEMOGLOBIN 11.1 GM/dL (11.7-16.9); LYMPH % 13.2 % (8-40); MCH 28.4 pg (25.7-33.7); MEAN CELL VOLUME 86.1 fl (80-96); MEAN PLT VOLUME 7.7 fl (7.5-11.1); MONO % 4.4 % (3.8-10.2); NEUT % 81.6 % (42.8-82.8); PLATELET COUNT 215 10^3/uL (134-434); RBC 3.93 M/mm3 (4.00-5.60); RDW 13.6 % (11.9-15.9); WHITE BLOOD COUNT 6.5 K/mm3 (4.0-10.0)
[2022-05-27 06:46] LABS: INR 1.11 (0.83-1.09); PROTHROMBIN TIME (PATIENT) 12.9 SEC (9.7-13.0)
[2022-05-27 06:49] LABS: ACTIVATED PTT 26.1 SECONDS (25.2-36.5)
[2022-05-27 06:50] LABS: BLOOD UREA NITROGEN 16.7 mg/dL (7-18); CALCIUM 8.4 mg/dL (8.5-10.1)
[2022-05-27 06:51] LABS: ALBUMIN 3.3 g/dl (3.4-5.0)
[2022-05-27 06:55] LABS: BILIRUBIN,TOTAL 0.9 mg/dL (0.2-1); TOT PROT 6.5 g/dl (6.4-8.2)
[2022-05-27] MEDS ORDERED: SODIUM CHLORIDE 0.9% 500 ML INFUS.BAG IV ONE (07:20)
[2022-05-27 07:59] LABS: URINE APPEARANCE CLEAR; URINE BILIRUBIN NEGATIVE (NEGATIVE); URINE COLOR YELLOW; URINE GLUCOSE (UA) NEGATIVE (NEGATIVE); URINE KETONE NEGATIVE (NEGATIVE); URINE LEUK ESTERASE NEGATIVE (NEGATIVE); URINE NITRITE NEGATIVE (NEGATIVE); URINE PROTEIN NEGATIVE (NEGATIVE)
[2022-05-27] MEDS ORDERED: LORazepam 2 MG/ML SDV VIAL IVPUSH ONE (08:43)
[2022-05-27 09:22] VITALS: BP 117/70; PULSE 86; RESP 20; TEMP 97.9
== END 2022-05-27 11:13 | disposition left against medical advice (07) ==
LOC: JER 04:52
PROC: 3E0333Z Introduction of Anti-inflammatory into Peripheral Vein, Percutaneous Approach (ICD-10-PCS; principal; 2022-05-27)
PROC: 3E033GC Introduction of Other Therapeutic Substance into Peripheral Vein, Percutaneous Approach (ICD-10-PCS; 2022-05-27)
DX: K60.2 Anal fissure, unspecified (principal); A63.0 Anogenital (venereal) warts; R50.9 Fever, unspecified
CPT/HCPCS: 0241U-QW; 36415; 71045-TC-FY; 74177-TC; 80053; 81003; 82272; 84484; 85025; 85610; 85730; 86850; 86900; 86901; 87086; 93005; 93010; 99285-25; Q9967

== ENCOUNTER 2023-07-07 12:25 | Emergency (ER) | payer OTHER ==
[2023-07-07 12:34] VITALS: BP 121/82; PULSE 73; RESP 20; TEMP 98.5; BMI 26.9
[2023-07-07] MEDS ORDERED: ERYTHROMYCIN 0.5% OPHTHALMIC OINTMENT 3.5 GM TUBE ONE (13:11)
[2023-07-07] MEDS: ERYTHROMYCIN 0.5% OPHTHALMIC OINTMENT 3.5 GM TUBE OU STA (13:18)
== END 2023-07-07 13:19 | disposition home or self-care (01) ==
LOC: JERFT 12:25
DX: H10.33 Unspecified acute conjunctivitis, bilateral (principal); H57.89 Other specified disorders of eye and adnexa
CPT/HCPCS: 99283-25

== ENCOUNTER 2024-05-31 06:38 | Emergency (ER) | payer OTHER ==
[2024-05-31 06:45] VITALS: BP 108/81; PULSE 91; RESP 20; TEMP 99.7; BMI 27.2
[2024-05-31] MEDS ORDERED: ACETAMINOPHEN 500 MG TABLET (FP) ONE (07:54)
[2024-05-31 07:57] LABS: ABSOLUTE IMMATURE GRANULOCYTES 0.03 x10^3/uL (0.0-0.031); BASOPHILS # 0.02 x10^3/uL (0.01-0.08); EOSINOPHIL % 1.7 % (0.8-7.0); EOSINOPHILS # 0.15 x10^3/uL (0.04-0.54); HEMATOCRIT 36.2 % (40.1-51.0); MCHC 30.4 g/dl (32.3-36.5); MEAN CELL VOLUME 90.7 fl (79.0-92.2); MEAN PLT VOLUME 9.1 fl (9.4-12.4); MONOCYTE # 0.92 x10^3/uL (0.30-0.82); MONOCYTE % 10.5 % (5.3-12.2); PLATELET COUNT 225 x10^3/uL (163-337); RDW 13.2 % (12.2-16.1)
[2024-05-31] MEDS: ACETAMINOPHEN 500 MG TABLET (FP) PO ONE (07:57)
[2024-05-31 08:19] LABS: POTASSIUM 3.7 mmol/L (3.5-5.1)
[2024-05-31 08:20] LABS: CALCIUM 9.4 mg/dL (8.5-10.1)
[2024-05-31 08:21] LABS: ALBUMIN 3.5 g/dl (3.4-5.0); BLOOD UREA NITROGEN 18.8 mg/dL (7-18)
[2024-05-31 08:24] LABS: CREATININE 0.9 mg/dL (0.55-1.3)
[2024-05-31 08:26] LABS: BILIRUBIN,TOTAL 0.8 mg/dL (0.2-1); TOT PROT 7.2 g/dl (6.4-8.2)
[2024-05-31 09:55] LABS: HCV DIAGNOSTIC IN-HOUSE W/RFLX NON-REACTIVE (NONREACTIVE)
[2024-05-31 09:56] LABS: HIV INTERPRETATION NEGATIVE (NEGATIVE)
== END 2024-05-31 09:42 | disposition home or self-care (01) ==
LOC: JER 06:38
DX: R07.89 Other chest pain (principal); J06.9 Acute upper respiratory infection, unspecified; R05.9 Cough, unspecified; M79.671 Pain in right foot; R50.9 Fever, unspecified; R53.81 Other malaise
CPT/HCPCS: 0241U-QW; 36415; 71046-TC-FY; 73030-TC-RT-FY; 73630-TC-RT-FY; 80053; 84484; 85025; 86803; 87389; 93005; 93010; 99285-25